=== PATIENT | female | born 2000 | race Caucasian/White ===

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

== ENCOUNTER 2022-03-14 17:56 | Emergency (ER) | payer MEDICAID ==
[~2022-03-14] VITALS: Ht 157.5 cm; Wt 69.1 kg
[~2022-03-14 17:56] MED LIST: BICT1TAB PO
[2022-03-14] MEDS ORDERED: GABA-1216 PO (18:21)
[2022-03-14] MEDS ORDERED: LITH300C3 PO (18:21)
[2022-03-14] MEDS ORDERED: CYCL-448 PO (22:41)
[2022-03-14] MEDS ORDERED: KETOROLAC TROMETHAMINE 30 MG/ML VIAL IM ONE (22:45)
[2022-03-14 23:08] VITALS: BP 110/65
== END 2022-03-14 23:10 | disposition home or self-care (01) ==
LOC: EMS 18:00
DX: M54.2 Cervicalgia (principal); F12.90 Cannabis use, unspecified, uncomplicated; F41.9 Anxiety disorder, unspecified; F31.9 Bipolar disorder, unspecified; Z79.899 Other long term (current) drug therapy
CPT/HCPCS: 99283; 72040; 96372; J1885